=== PATIENT | female | born 1975 | race Caucasian/White ===

== ENCOUNTER 2017-03-06 20:34 | Emergency (ER) | payer BC, OTHER ==
[~2017-03-06] VITALS: Ht 167.6 cm; Wt 99.9 kg
[~2017-03-06 20:34] MED LIST: ALPR0.25 PO; DESO1TAB PO; IBUP-1277 PO; LEVO88TA PO; SERT50TA PO
[2017-03-06 20:39] VITALS: TEMP 37; Ht 167.6 cm; Wt 99.9 kg
[2017-03-06] MEDS ORDERED: LEVO150T9 PO (21:19)
[2017-03-06] MEDS ORDERED: QUET1TAB34 PO (21:19)
[2017-03-06] MEDS ORDERED: MULT-506 PO (21:19)
--- NOTE | 2017-03-06 21:34 | EMERGENCY ROOM VISIT NOTE ---
History Report prepared by Carl: Tony Sosa Under the Supervision of: Dr. Mario Vanegas D.O. First contact with patient: 21:27 Chief Complaint: COUGH Stated Complaint: COUGHING,SORE THROAT Nursing Triage Summary: Pt ambulates to room. Reports was seen at [facility] for cough. Pt was given tessolon perals, prednisone, inhaler. History of Present Illness The patient is a 41 year old female who presents to the Emergency Room with complaints of persistent coughing for the past two weeks. She also has some shortness of breath with exertion. The patient was seen in [place] ED two weeks ago. She was diagnosed with bronchitis and started on Tessalon Perls and Prednisone. She was not started on antibiotics. The patient also had a negative Chest X-ray. She is not a smoker. Source of History: patient Onset: two weeks ago Position: other (respiratory) Quality: other (cough) Timing: other (persistent) Associated Symptoms: + SOB Review of Systems See HPI for pertinent positives and negatives. A total of ten systems were reviewed and were otherwise negative. Past Medical & Surgical Medical Problems: (1) Papillary thyroid carcinoma Family History No pertinent family history Social History Smoking Status: Never Smoker Marital Status: Housing Status: lives with family Current/Historical Medications Scheduled Alprazolam (Xanax), 0.5 MG PO QAM Ethinyl Estrad/Desogestrel (Mircette), 1 TAB PO QAM Levothyroxine Sodium (Levothyroxine Sodium), 150 MCG PO DAILY Multivitamin (Multivitamin), 1 TAB PO DAILY Quetiapine Fumarate (Seroquel), 150 MG PO HS Sertraline (Zoloft), 150 MG PO HS Allergies Coded Allergies: NO KNOWN DRUG ALLERGIES (Verified Allergy, Unknown, nkda, 03/06/17) Physical Exam Vital Signs Date Time Temp Pulse Resp B/P Pulse Ox O2 Delivery O2 Flow Rate FiO2 03/06/17 20:59 Room Air 03/06/17 20:39 37.0 117 20 124/78 94 Room Air Physical Exam GENERAL: Awake, alert, well-appearing, in no distress HENT: Normocephalic, atraumatic. Oropharynx unremarkable. EYES: Normal conjunctiva. Sclera non-icteric. NECK: Supple. No nuchal rigidity. FROM. No JVD. RESPIRATORY: Clear to auscultation. CARDIAC: Mild tachycardia, normal rhythm. Extremities warm and well perfused. Pulses equal. ABDOMEN: Soft, non-distended. No tenderness to palpation. No rebound or guarding. No masses. RECTAL: Deferred. MUSCULOSKELETAL: Chest examination reveals no tenderness. The back is symmetrical on inspection without obvious abnormality. There is no CVA tenderness to palpation. No joint edema. LOWER EXTREMITIES: Calves are equal size bilaterally and non-tender. No edema. No discoloration. NEURO: Normal sensorium. No sensory or motor deficits noted. SKIN: No rash or jaundice noted. Medical Decision & Procedures ED Course 2127: The patient was evaluated in room A2. A complete history and physical exam was performed. 2134: Discussed the discharge instructions. She verbalized agreement. The patient is ready for discharge. Medical Decision Differential diagnosis includes bronchitis, URI, early pneumonia, viral syndrome. Patient will be treated with a Z-Steven as well as an albuterol inhaler. Impression Primary Impression: Acute bronchitis Scribe Attestation The scribe's documentation has been prepared under my direction and personally reviewed by me in its entirety. I confirm that the note above accurately reflects all work, treatment, procedures, and medical decision making performed by me. Departure Information Dispostion Home / Self-Care Prescriptions Albuterol Hfa (VENTOLIN HFA) 200 Puffs/34150 Mcg Aers 2-4 PUFFS INH Q6H, #1 INHALER Prov: Mario Vanegas, DO 03/06/17 Azithromycin (ZITHROMAX Z-STEVEN) 250 Mg Tab 0 PO UD, #1 PKT Prov: Mario Vanegas, DO 03/06/17 Referrals Dionisio Shipman M.D. (PCP) Forms HOME CARE DOCUMENTATION FORM, IMPORTANT VISIT INFORMATION Patient Instructions Bronchitis Acute, My [facility] Problem Qualifiers Primary Impression: Acute bronchitis Bronchitis organism: unspecified organism Qualified Codes: J20.9 - Acute bronchitis, unspecified
[2017-03-06] MEDS ORDERED: AZITTAB PO (21:37)
[2017-03-06] MEDS ORDERED: VNTHFA/IN INH (21:37)
[2017-03-06 21:51] VITALS: BP 126/77; PULSE 96; O2SAT 97
== END 2017-03-06 21:50 | disposition home or self-care (01) ==
LOC: C.EDB 20:35 → C.EDA 21:50
DX: J20.9 Acute bronchitis, unspecified (principal); Z85.850 Personal history of malignant neoplasm of thyroid; Z79.899 Other long term (current) drug therapy